=== PATIENT | female | born 1970 | race Caucasian/White ===

== ENCOUNTER 2021-07-15 09:10 | Emergency (ER) | payer OTHER ==
[~2021-07-15] VITALS: Ht 165.1 cm; Wt 89.4 kg
[~2021-07-15 09:10] MED LIST: ANTIVERT/2525 MG PO; IBU-8800 MG PO
== END 2021-07-15 12:10 | disposition home or self-care (01) ==
LOC: ED 09:10
DX: M54.50 Low back pain, unspecified (principal); Z88.1 Allergy status to other antibiotic agents; V49.9XXA Car occupant (driver) (passenger) injured in unspecified traffic accident, initial encounter; Y93.89 Activity, other specified; Y92.89 Other specified places as the place of occurrence of the external cause; Y99.8 Other external cause status